=== PATIENT | male | born 1985 | race Two or more races ===

== ENCOUNTER 2018-11-06 11:45 | Inpatient (IN) | payer OTHER ==
[2018-11-06 14:01] VITALS: BMI 38.3
--- NOTE | 2018-11-06 14:32 | HP ---
CIWA Score Nausea/Vomitin (vomit x 1) Muscle Tremors: 3 Anxiety: 3 Agitation: 0-Normal Activity Paroxysmal Sweats: 2 Orientation: 1-Uncertain about Date Tacttile Disturbances: 2-Mild Itch/Numbness/Burn (finger tips) Auditory Disturbances: 1-Very Mild Visual Disturbances: 0-None Headache: 2-Mild CIWA-Ar Total Score: 17 - Admission Criteria OASAS Guidelines: Admission for Medically Managed Detox: Requires at least one of the followin. CIWA greater than 12 2. Seizures within the past 24 hours 3. Delirium tremens within the past 24 hours 4. Hallucinations within the past 24 hours 5. Acute intervention needed for co occurring medical disorder 6. Acute intervention needed for co occurring psychiatric disorder 7. Severe withdrawal that cannot be handled at a lower level of care (continued vomiting, continued diarrhea, abnormal vital signs) requiring intravenous medication and/or fluids 8. Patient presents the following: CIWA greater than 12, Acute intervention needed for co-occurring med or psych disorder Admission Criteria Met: Admission criteria met Admission ROS S - [facility] Chief Complaint: withdrawal symptoms Allergies/Adverse Reactions: Allergies Allergy/AdvReac Type Severity Reaction Status Date / Time No Known Allergies Allergy Verified 11/06/18 13:43 History of Present Illness: 33 yo male with hx of nicotine, heroin, cocaine and alcohol dependence is here seeking detox, this is patient first admission to this facility. Reports relapsed September 2018 after eighteen months of sobriety. Last detox September 2017 at [facility]. Reports recent visit [facility] emergency room d /t withdrawal symptoms one week ago. Utox + BZO, MET, ÓSCAR. PMHX: fatty liver, GERD, HTN, Depression, anxiety, schizophrenia, insomnia. Denies SI/ HI Reports hx of suicide attempts x6 with last episode August 2018. Reports hx of ETOH withdrawal seizures with last episode yesterday. Exam Limitations: No Limitations - Ebola screening Have you traveled outside of the country in the last 21 days: No (N) Have you had contact with anyone from an Ebola affected area: No Do you have a fever: No - Review of Systems Constitutional: Chills, Diaphoresis, Changes in sleep (no sleep x 4 days), Weakness, Other (weight gain x 50 lbs in past six months) EENT: reports: No Symptoms Reported Respiratory: reports: No Symptoms reported Cardiac: reports: Lightheadedness GI: reports: Nausea, Poor Fluid Intake, Vomiting : reports: No Symptoms Reported Musculoskeletal: reports: No Symptoms Reported Integumentary: reports: No Symptoms Reported Neuro: reports: Headache, Tingling (finger tips b/l) Hematology: reports: No Symptoms Reported Psychiatric: reports: Orientated x3, Anxious, Depressed Other Systems: Reviewed and Negative Patient History - Patient Medical History Hx Anemia: No Hx Asthma: No Hx Chronic Obstructive Pulmonary Disease (COPD): No Hx Cancer: No Hx Cardiac Disorders: No Hx Congestive Heart Failure: No Hx Hypertension: Yes Hx Hypercholesterolemia: No Hx Pacemaker: No HX Cerebrovascular Accident: No Hx Seizures: Yes (ETOH last episode yesterday ) Hx Dementia: No Hx Diabetes: No Hx Gastrointestinal Disorders: Yes (GERD , hx pancreatitis x 1 year ago ) Hx Liver Disease: Yes (Fatty liver ) Hx Genitourinary Disorders: No Hx Sexually Transmitted Disorders: No Hx Renal Disease (ESRD): No Hx Thyroid Disease: No Hx Human Immunodeficiency Virus (HIV): No Hx Hepatitis C: No Hx Depression: Yes Hx Suicide Attempt: Yes (suicide attempts x6 with last episode August 2018.) Hx Bipolar Disorder: No Hx Schizophrenia: Yes - Patient Surgical History Past Surgical History: Yes Other Surgical History: laser varicose vein tx - PPD History Previous Implant?: No Documented Results: Negative w/o proof PPD to be Administered?: Yes - Smoking Cessation Smoking history: Current every day smoker Have you smoked in the past 12 months: Yes Aproximately how many cigarettes per day: 3 Hx Chewing Tobacco Use: No Initiated information on smoking cessation: Yes 'Breaking Loose' booklet given: 11/06/18 - Substance & Tx. History Hx Alcohol Use: Yes Hx Substance Use: Yes Substance Use Type: Alcohol, Cocaine, Heroin Hx Substance Use Treatment: Yes (ast detox September 2017 at [facility]. ) - Substances abused Alcohol Substance route: Oral Frequency: Daily Amount used: 1 gallon vodka Age of first use: 10 Date of last use: 11/06/18 Cocaine Substance route: Inhalation Frequency: Daily Amount used: 3 grams Age of first use: 26 Date of last use: 11/04/18 Heroin Substance route: Inhalation Frequency: 3-6 times per week Amount used: 4 bags Age of first use: 22 Date of last use: 11/03/18 Family Disease History - Family Disease History Family History: Denies Admission Physical Exam [facility] - Vital Signs Vital Signs: Vital Signs - 24 hr 11/06/18 13:45 Temperature 98.4 F Pulse Rate 86 Respiratory 18 Rate Blood Pressure 151/83 - Physical General Appearance: Yes: Disheveled, Mild Distress, Alcohol on Breath, Obese, Tremorous, Sweating, Anxious HEENTM: Yes: EOMI, Hearing grossly Normal, Normal ENT Inspection, Normocephalic , Normal Voice, ROMY, Pharynx Normal, Tm's normal, Other (cheilitis) Respiratory: Yes: Chest Non-Tender, Lungs Clear, Normal Breath Sounds, No Respiratory Distress, No Accessory Muscle Use Neck: Yes: Within Normal Limits Breast: Yes: Breast Exam Deferred Cardiology: Yes: Regular Rhythm, Regular Rate Abdominal: Yes: Normal Bowel Sounds, Non Tender, Soft, Protuberent Genitourinary: Yes: Within Normal Limits Back: Yes: Normal Inspection Musculoskeletal: Yes: full range of Motion, Gait Steady, Pelvis Stable Extremities: Yes: Normal Capillary Refill, Normal Inspection, Normal Range of Motion, Non-Tender, Pedal Edema (+1 bilateral ankles), Other (+ varicose veins) 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: 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 NML intact, Fully Oriented, Alert, Motor Strength 5/5, Depressed Affect Integumentary: Yes: Normal Color, Warm, Diaphoresis, Other (+ multiple scars on both wrist) Lymphatic: Yes: Within Normal Limits - Diagnostic (1) Fatty liver Current Visit: Yes Status: Chronic (2) Alcohol dependence with uncomplicated withdrawal Current Visit: Yes Status: Acute (3) Psychiatric disorder Current Visit: Yes Status: Suspected (4) Essential (primary) hypertension Current Visit: Yes Status: Chronic (5) Cocaine dependence Current Visit: Yes Status: Acute Qualifiers: Substance use status: uncomplicated Qualified Code(s): F14.20 - Cocaine dependence, uncomplicated (6) Heroin use Current Visit: Yes Status: Acute (7) GERD (gastroesophageal reflux disease) Current Visit: Yes Status: Acute (8) Nicotine dependence Current Visit: Yes Status: Acute Qualifiers: Nicotine product type: cigarettes (9) Obese Current Visit: Yes Status: Acute Qualifiers: Body mass index: BMI 38.0-38.9 Cleared for Admission [facility] - Detox or Rehab [facility] Level of Care: Medically Managed ([facility] DETOX) Breathalyzer - Breathalyzer Breathalyzer: 0.232 Urine Drug Screen - Test Device Lot number: [id number] Expiration date: 06/09/20 - Control Is test valid?: Yes - Results Drug screen NEGATIVE: No Urine drug screen results: ÓSCAR-Cocaine, MET-Methamphetamine, BZO-Benzodiazepines Inpatient Rehab Admission - Rehab Decision to Admit Inpatient rehab admission?: No
[2018-11-06] MEDS ORDERED: NICOTINE POLACRILEX 2 MG GUM BUC PRN (14:47)
[2018-11-06] MEDS ORDERED: IBUPROFEN 400 MG TABLET (FP) PO PRN ×2 (14:47)
[2018-11-06] MEDS ORDERED: MELATONIN 5 MG TABLETS PO PRN (14:47)
[2018-11-06] MEDS ORDERED: MAGNESIUM HYDROX 2400MG/30ML ORAL SUSPENSION 30 ML CUP PO PRN (14:47)
[2018-11-06] MEDS ORDERED: MAGNESIUM CITRATE 300 ML BOTTLE PO PRN (14:47)
[2018-11-06] MEDS ORDERED: MAG HYDROX/AL HYDROX/SIMETH 30 ML UNIT-DOSE CUP PO PRN (14:47)
[2018-11-06] MEDS ORDERED: BISMUTH SUBSALICYLATE 524 MG/30 ML UD PO PRN (14:47)
[2018-11-06] MEDS ORDERED: MENTHOL/PHENOL 1 EACH UD MM PRN (14:47)
[2018-11-06] MEDS ORDERED: ONDANSETRON *ODT* 4 MG TABLET SL PRN (14:47)
[2018-11-06 16:18] LABS: HEMATOCRIT 42.5 % (35.4-49); MCH 29.5 pg (25.7-33.7); MEAN CELL VOLUME 89.4 fl (80-96); MEAN PLT VOLUME 9.5 fl (7.5-11.1); PLATELET COUNT 234 K/MM3 (134-434); RBC 4.75 M/mm3 (4.00-5.60); RDW 14.2 % (11.9-15.9); WHITE BLOOD COUNT 7.8 K/mm3 (4.0-10.0)
[2018-11-06 16:20] LABS: ALK PHOS 101 U/L (45-117); ANION GAP 6 MMOL/L (8-16); BILIRUBIN,TOTAL 0.3 mg/dL (0.2-1); BLOOD UREA NITROGEN 7 mg/dL (7-18); CALCIUM 9.3 mg/dL (8.5-10.1); CHLORIDE 108 mmol/L (98-107); CO2 29 mmol/L (21-32); CREATININE 0.8 mg/dL (0.55-1.3); GLUCOSE,RANDOM 113 mg/dL (74-106); POTASSIUM 3.5 mmol/L (3.5-5.1); SGOT/AST 47 U/L (15-37); SGPT/ALT 43 U/L (13-61); SODIUM 144 mmol/L (136-145); TOT PROT 7.7 g/dl (6.4-8.2)
[2018-11-06] MEDS ORDERED: cloNIDine HCL 0.1 MG TABLET PO ONE (17:00)
[2018-11-06] MEDS: LORazepam 2 MG TABLET PO SCH ×2 (17:44→22:13)
[2018-11-06] MEDS ORDERED: cloNIDine HCL 0.1 MG TABLET PO SCH (22:00)
[2018-11-06] MEDS: hydrOXYzine PAMOATE 25 MG CAPSULE (FP) PO PRN (22:13)
[2018-11-06] MEDS: RANITIDINE HCL 150 MG TABLET (FP) PO SCH (22:13)
[2018-11-06] MEDS: METHOCARBAMOL 500 MG TABLET PO PRN (22:13)
[2018-11-06] MEDS: THIAMINE HCL 100 MG TABLET (FP) PO SCH (22:13)
[2018-11-07 01:45] LABS: URINE APPEARANCE CLEAR; URINE BILIRUBIN NEGATIVE (NEGATIVE); URINE COLOR YELLOW; URINE GLUCOSE (UA) NEGATIVE (NEGATIVE); URINE KETONE NEGATIVE (NEGATIVE); URINE LEUK ESTERASE NEGATIVE (NEGATIVE); URINE NITRITE NEGATIVE (NEGATIVE); URINE PROTEIN NEGATIVE (NEGATIVE); URINE UROBILINOGEN 0.2 mg/dL (0.2-1.0)
[2018-11-07] MEDS: LORazepam 2 MG TABLET PO SCH ×2 (05:51→10:41)
[2018-11-07] MEDS: METHOCARBAMOL 500 MG TABLET PO PRN ×2 (06:12→16:50)
[2018-11-07] MEDS: PROCHLORPERAZINE MALEATE 5 MG TABLET PO PRN (09:16)
[2018-11-07] MEDS: hydrOXYzine PAMOATE 25 MG CAPSULE (FP) PO PRN ×2 (09:16→19:11)
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
[2018-11-07] MEDS: RANITIDINE HCL 150 MG TABLET (FP) PO SCH ×2 (10:40→22:08)
[2018-11-07] MEDS: PRENATAL VITAMINS W/ FOLIC ACID TABLET (FP) PO SCH (10:40)
[2018-11-07] MEDS: NICOTINE 14 MG/24 HOURS TOPICAL PATCH TD SCH (10:41)
[2018-11-07] MEDS: LITHIUM CARBONATE 300 MG CAPSULE (FP) PO SCH ×2 (11:49→22:08)
[2018-11-07] MEDS: busPIRone HCL 5 MG TABLET PO SCH (11:50)
[2018-11-07] MEDS: ESCITALOPRAM OXALATE 10 MG TABLET (FP) PO SCH (11:50)
[2018-11-07] MEDS: GABAPENTIN 400 MG CAPSULE (FP) PO SCH ×2 (14:07→22:07)
[2018-11-07] MEDS: LORazepam 1 MG TABLET PO PRN ×2 (14:12→19:11)
--- NOTE | 2018-11-07 14:50 | PN ---
S CIWA - CIWA Score Nausea/Vomitin Muscle Tremors: 3 Anxiety: 4-Mod. Anxious/Guarded Agitation: 4-Moderately Restless Paroxysmal Sweats: No Perspiration Orientation: 4Disoriented Place/Person Tacttile Disturbances: 2-Mild Itch/Numbness/Burn Auditory Disturbances: 0-None Visual Disturbances: 0-None Headache: 0-None Present CIWA-Ar Total Score: 20 BHS Progress Note (SOAP) Subjective: Stomach Cramping, Anxious, Body Aches, Tremors, Interrupted Sleep, Nausea, H/A. Objective: PATIENT A & O X 2 (UNCERTAIN ABOUT CURRENT LOCATION). PATIENT OBSERVED AMBULATING ON UNIT UNASSISTED. IN NO ACUTE DISTRESS. 11/07/18 14:48 Vital Signs Temperature 97.3 F L 11/07/18 13:23 Pulse Rate 71 11/07/18 13:30 Respiratory Rate 18 11/07/18 13:30 Blood Pressure 137/82 11/07/18 13:23 O2 Sat by Pulse Oximetry (%) Laboratory Tests 11/06/18 11/06/18 11/06/18 15:00 15:00 15:00 WBC 7.8 RBC 4.75 Hgb 14.0 Hct 42.5 MCV 89.4 MCH 29.5 MCHC 33.0 RDW 14.2 Plt Count 234 MPV 9.5 Sodium 144 Potassium 3.5 Chloride 108 H Carbon Dioxide 29 Anion Gap 6 L BUN 7 Creatinine 0.8 Creat Clearance w eGFR 112.75 Random Glucose 113 H Calcium 9.3 Total Bilirubin 0.3 AST 47 H ALT 43 Alkaline Phosphatase 101 Total Protein 7.7 Albumin 4.0 Urine Color Urine Appearance Urine pH Ur Specific [place] Urine Protein Urine Glucose (UA) Urine Ketones Urine Blood Urine Nitrite Urine Bilirubin Urine Urobilinogen Ur Leukocyte Esterase RPR Titer Nonreactive 11/06/18 15:54 WBC RBC Hgb Hct MCV MCH MCHC RDW Plt Count MPV Sodium Potassium Chloride Carbon Dioxide Anion Gap BUN Creatinine Creat Clearance w eGFR Random Glucose Calcium Total Bilirubin AST ALT Alkaline Phosphatase Total Protein Albumin Urine Color Yellow Urine Appearance Clear Urine pH 7.0 Ur Specific [place] 1.004 L Urine Protein Negative Urine Glucose (UA) Negative Urine Ketones Negative Urine Blood Negative Urine Nitrite Negative Urine Bilirubin Negative Urine Urobilinogen 0.2 Ur Leukocyte Esterase Negative RPR Titer LABS NOTED. Assessment: 11/07/18 14:48 WITHDRAWAL SYMPTOMS. Plan: CONTINUE DETOX. INCREASE DAILY PO FLUID INTAKE. PRN ROBAXIN PO FOR BODY ACHES / MUSCLE SPASMS / TREMORS.
[2018-11-07] MEDS: LORazepam 1 MG TABLET PO SCH ×2 (16:50→22:08)
[2018-11-07] MEDS: traZODone HCL 50 MG TABLET (FP) PO SCH (22:08)
[2018-11-07] MEDS: THIAMINE HCL 100 MG TABLET (FP) PO SCH (22:08)
[2018-11-07] MEDS: OLANZapine 7.5 MG TABLET PO SCH (22:08)
[2018-11-08] MEDS: GABAPENTIN 400 MG CAPSULE (FP) PO SCH ×3 (05:34→22:29)
[2018-11-08] MEDS: LORazepam 1 MG TABLET PO SCH ×2 (05:35→10:03)
[2018-11-08] MEDS: RANITIDINE HCL 150 MG TABLET (FP) PO SCH ×2 (10:02→22:30)
[2018-11-08] MEDS: PRENATAL VITAMINS W/ FOLIC ACID TABLET (FP) PO SCH (10:02)
[2018-11-08] MEDS: LITHIUM CARBONATE 300 MG CAPSULE (FP) PO SCH ×2 (10:03→22:29)
[2018-11-08] MEDS: busPIRone HCL 5 MG TABLET PO SCH (10:04)
[2018-11-08] MEDS: PROCHLORPERAZINE MALEATE 5 MG TABLET PO PRN (10:04)
[2018-11-08] MEDS: METHOCARBAMOL 500 MG TABLET PO PRN ×2 (10:04→17:48)
[2018-11-08] MEDS: ESCITALOPRAM OXALATE 10 MG TABLET (FP) PO SCH (10:04)
[2018-11-08] MEDS: NICOTINE 14 MG/24 HOURS TOPICAL PATCH TD SCH (10:06)
[2018-11-08] MEDS: LORazepam 1 MG TABLET PO PRN (12:24)
--- NOTE | 2018-11-08 13:49 | PN ---
S CIWA - CIWA Score Nausea/Vomitin Muscle Tremors: None Anxiety: 3 Agitation: 2 Paroxysmal Sweats: 2 Orientation: 0-Oriented Tacttile Disturbances: 2-Mild Itch/Numbness/Burn Auditory Disturbances: 0-None Visual Disturbances: 2-Mild Sensitivity Headache: 0-None Present CIWA-Ar Total Score: 14 BHS Progress Note (SOAP) Subjective: Nausea, Anxious, Sweating. Patient Reports That Withdrawal / Detox Symptoms in general are subsiding in severity. Objective: PATIENT A & O X 3, OBSERVED AMBULATING ON UNIT UNASSISTED. IN NO ACUTE DISTRESS. 11/08/18 13:50 Laboratory Tests 11/06/18 11/06/18 11/06/18 15:00 15:00 15:00 WBC 7.8 RBC 4.75 Hgb 14.0 Hct 42.5 MCV 89.4 MCH 29.5 MCHC 33.0 RDW 14.2 Plt Count 234 MPV 9.5 Sodium 144 Potassium 3.5 Chloride 108 H Carbon Dioxide 29 Anion Gap 6 L BUN 7 Creatinine 0.8 Creat Clearance w eGFR 112.75 Random Glucose 113 H Calcium 9.3 Total Bilirubin 0.3 AST 47 H ALT 43 Alkaline Phosphatase 101 Total Protein 7.7 Albumin 4.0 Urine Color Urine Appearance Urine pH Ur Specific [place] Urine Protein Urine Glucose (UA) Urine Ketones Urine Blood Urine Nitrite Urine Bilirubin Urine Urobilinogen Ur Leukocyte Esterase RPR Titer Nonreactive 11/06/18 15:54 WBC RBC Hgb Hct MCV MCH MCHC RDW Plt Count MPV Sodium Potassium Chloride Carbon Dioxide Anion Gap BUN Creatinine Creat Clearance w eGFR Random Glucose Calcium Total Bilirubin AST ALT Alkaline Phosphatase Total Protein Albumin Urine Color Yellow Urine Appearance Clear Urine pH 7.0 Ur Specific [place] 1.004 L Urine Protein Negative Urine Glucose (UA) Negative Urine Ketones Negative Urine Blood Negative Urine Nitrite Negative Urine Bilirubin Negative Urine Urobilinogen 0.2 Ur Leukocyte Esterase Negative RPR Titer LABS NOTED. Assessment: 11/08/18 13:50 WITHDRAWAL SYMPTOMS. Plan: CONTINUE DETOX. INCREASE DAILY PO FLUID INTAKE. PRN COMPAZINE PO FOR NAUSEA.
[2018-11-08] MEDS: hydrOXYzine PAMOATE 25 MG CAPSULE (FP) PO PRN (15:32)
[2018-11-08] MEDS ORDERED: LORazepam 0.5 MG TABLET PO PRN (17:00)
[2018-11-08] MEDS: LORazepam 0.5 MG TABLET PO SCH ×2 (17:07→22:29)
[2018-11-08] MEDS: OLANZapine 7.5 MG TABLET PO SCH (22:29)
[2018-11-08] MEDS: THIAMINE HCL 100 MG TABLET (FP) PO SCH (22:29)
[2018-11-08] MEDS: traZODone HCL 50 MG TABLET (FP) PO SCH (22:31)
[2018-11-09] MEDS: LORazepam 0.5 MG TABLET PO SCH (05:50)
[2018-11-09] MEDS: GABAPENTIN 400 MG CAPSULE (FP) PO SCH (05:50)
[2018-11-09 06:22] VITALS: BP 131/79; PULSE 65; TEMP 97.3
[2018-11-09] MEDS: METHOCARBAMOL 500 MG TABLET PO PRN (07:35)
--- NOTE | 2018-11-09 16:13 | DS ---
[facility] Detox Discharge Summary Admission Date: 11/06/18 Discharge Date: 11/09/18 - History Present History: Alcohol Dependence, Cocaine Dependence, Opioid Dependence Additional Comments: PATIENT LEFT DETOX UNIT EARLY IN AM PRIOR TO TIME OF ARRIVAL OF DIETETIC INTERN ON DETOX UNIT. THUS PRE-DISCHARGE MEDICAL ASSESSMENT UNABLE TO E DONE. PER PATIENT'S REPORT YESTERDAY, HE DECLINED OFFER OF MEDICATION PRESCRIPTION FOR HOME MEDICATION FOR DISCHARGE, NOTING THAT HE CURRENTLY HAS ADEQUATE SUPPLIES OF ALL PRESCRIBED HOME MEDICATIONS AT HOME. YESTERDAY ON DETOX UNIT, PATIENT ADVISED BY DIETETIC INTERN TO FOLLOW-UP WITH [facility] WHEN POSSIBLE FOR GENERAL MEDICAL ASSESSMENT AND FOR HISTORY OF HYPERTENSION. PATIENT VERBALIZED UNDERSTANDING OF RECOMMENDATION. PER NETWORK SUPPORT TECHNICIAN Justus DRIVER, PATIENT WILL RETURN TO ' [facility]PATIENT [facility]GRAM ([place], [place]) WHERE HE WAS PREVIOUSLY A CLIENT, FOR AFTERCARE. Pertinent Past History: HTN, G.E.R.D., Nicotine Dependence, Fatty Liver, Depression, Anxiety, Insomnia, Schizophrenia, History Of Seizures (Due To Withdrawal), History Of Pancreatitis. - Physical Exam Results Vital Signs: Vital Signs Temperature 97.3 F L 11/09/18 06:21 Pulse Rate 65 11/09/18 06:21 Respiratory Rate 20 11/09/18 06:21 Blood Pressure 131/79 11/09/18 06:21 O2 Sat by Pulse Oximetry (%) Pertinent Admission Physical Exam Findings: WITHDRAWAL SYMPTOMS. Laboratory Tests 11/06/18 11/06/18 11/06/18 15:00 15:00 15:00 WBC 7.8 RBC 4.75 Hgb 14.0 Hct 42.5 MCV 89.4 MCH 29.5 MCHC 33.0 RDW 14.2 Plt Count 234 MPV 9.5 Sodium 144 Potassium 3.5 Chloride 108 H Carbon Dioxide 29 Anion Gap 6 L BUN 7 Creatinine 0.8 Creat Clearance w eGFR 112.75 Random Glucose 113 H Calcium 9.3 Total Bilirubin 0.3 AST 47 H ALT 43 Alkaline Phosphatase 101 Total Protein 7.7 Albumin 4.0 Urine Color Urine Appearance Urine pH Ur Specific [place] Urine Protein Urine Glucose (UA) Urine Ketones Urine Blood Urine Nitrite Urine Bilirubin Urine Urobilinogen Ur Leukocyte Esterase [place] RPR Titer Nonreactive 11/06/18 11/08/18 15:54 07:00 WBC RBC Hgb Hct MCV MCH MCHC RDW Plt Count MPV Sodium Potassium Chloride Carbon Dioxide Anion Gap BUN Creatinine Creat Clearance w eGFR Random Glucose Calcium Total Bilirubin AST ALT Alkaline Phosphatase Total Protein Albumin Urine Color Yellow Urine Appearance Clear Urine pH 7.0 Ur Specific [place] 1.004 L Urine Protein Negative Urine Glucose (UA) Negative Urine Ketones Negative Urine Blood Negative Urine Nitrite Negative Urine Bilirubin Negative Urine Urobilinogen 0.2 Ur Leukocyte Esterase Negative [place] 0.5 L RPR Titer LABS NOTED. - Treatment Hospital Course: Detox Protocol Followed, Detoxed Safely, Responded well, Discharged Condition Good Patient has Accepted a Rehab Referral to: PT. RETURNING TO '[facility] ([place], [place]). - Medication Discharge Medications: Ambulatory Orders Buspirone HCl [Buspar -] 5 mg PO DAILY 11/06/18 Clonazepam 1 mg PO BID 11/06/18 Escitalopram Oxalate [Lexapro -] 5 mg PO DAILY 11/06/18 Gabapentin 400 mg PO TID 11/06/18 [place] Carbonate [Eskalith -] 300 mg PO BID 11/06/18 Naltrexone HCl 50 mg PO DAILY 11/06/18 Olanzapine 15 mg PO HS 11/06/18 Ranitidine [Zantac -] 150 mg PO BID 11/06/18 Trazodone HCl 150 mg PO DAILY 11/06/18 Diltiazem HCl [Diltiazem 24Hr ER] 360 mg PO DAILY 11/07/18 - Diagnosis (1) Alcohol dependence with uncomplicated withdrawal Status: Acute (2) Cocaine dependence Status: Acute Qualifiers: Substance use status: uncomplicated Qualified Code(s): F14.20 - Cocaine dependence, uncomplicated (3) Heroin use Status: Acute (4) Essential (primary) hypertension Status: Chronic (5) Fatty liver Status: Chronic (6) GERD (gastroesophageal reflux disease) Status: Chronic Qualifiers: Esophagitis presence: esophagitis presence not specified Qualified Code(s) : K21.9 - Gastro-esophageal reflux disease without esophagitis (7) Nicotine dependence Status: Chronic Qualifiers: Nicotine product type: cigarettes Substance use status: uncomplicated Qualified Code(s): F17.210 - Nicotine dependence, cigarettes, uncomplicated (8) Obese Status: Chronic Qualifiers: Obesity type: unspecified obesity type Obesity classification: adult class 2 (BMI 35 - 39.9) Serious obesity comorbidity presence: unspecified whether serious comorbidity present Body mass index: BMI 38.0-38.9 Qualified Code(s) : E66.9 - Obesity, unspecified; Z68.38 - Body mass index (BMI) 38.0-38.9, adult (9) Substance-induced anxiety disorder Status: Acute (10) Substance-induced sleep disorder Status: Acute (11) Schizoaffective disorder Status: Chronic Qualifiers: Schizoaffective disorder type: unspecified Qualified Code(s): F25.9 - Schizoaffective disorder, unspecified - AMA Did Patient Leave Against Medical Advice: No
== END 2018-11-09 08:23 | disposition home or self-care (01) | DRG 773 ==
LOC: YASAS 11:45 → Y6N 15:39
PROVIDERS: ADMIT Surgery; ATTEND Surgery
PROC: HZ2ZZZZ Detoxification Services for Substance Abuse Treatment (ICD-10-PCS; principal; 2018-11-06)
DX: F10.230 Alcohol dependence with withdrawal, uncomplicated (principal); F11.20 Opioid dependence, uncomplicated; F14.20 Cocaine dependence, uncomplicated; F17.210 Nicotine dependence, cigarettes, uncomplicated; F19.280 Other psychoactive substance dependence with psychoactive substance-induced anxiety disorder; F19.282 Other psychoactive substance dependence with psychoactive substance-induced sleep disorder; F25.9 Schizoaffective disorder, unspecified; G40.509 Epileptic seizures related to external causes, not intractable, without status epilepticus; I10 Essential (primary) hypertension; K21.9 Gastro-esophageal reflux disease without esophagitis; K76.0 Fatty (change of) liver, not elsewhere classified; E66.9 Obesity, unspecified; Z68.38 Body mass index [BMI] 38.0-38.9, adult; Z91.5 Personal history of self-harm
CPT/HCPCS: 36415; 80053; 80178; 81003; 85027; 86593; J0735

== ENCOUNTER 2018-11-22 12:17 | Inpatient (IN) | payer OTHER ==
[2018-11-22 17:31] VITALS: BMI 40.4
--- NOTE | 2018-11-22 17:52 | HP ---
CIWA Score Nausea/Vomitin-No Nausea/No Vomiting Muscle Tremors: 7-Severe,w/o Arm Extended Anxiety: 6 Agitation: 6 Paroxysmal Sweats: 4-Forehead w/Sweat Beads Orientation: 3-Disoriented Date>2 days Tacttile Disturbances: 3-Moderate Itch/Numb/Burn Auditory Disturbances: 2-Mild Harshness/Frighten Visual Disturbances: 2-Mild Sensitivity Headache: 3-Moderate CIWA-Ar Total Score: 36 - Admission Criteria OASAS Guidelines: Admission for Medically Managed Detox: Requires at least one of the followin. CIWA greater than 12 2. Seizures within the past 24 hours 3. Delirium tremens within the past 24 hours 4. Hallucinations within the past 24 hours 5. Acute intervention needed for co occurring medical disorder 6. Acute intervention needed for co occurring psychiatric disorder 7. Severe withdrawal that cannot be handled at a lower level of care (continued vomiting, continued diarrhea, abnormal vital signs) requiring intravenous medication and/or fluids 8. Patient presents the following: CIWA greater than 12, Acute intervention needed for co-occurring med or psych disorder Admission Criteria Met: Admission criteria met Admission ROS [facility] Chief Complaint: C/O SEVERE WITHDRAWAL SX'S. SEEKING DETOX Allergies/Adverse Reactions: Allergies Allergy/AdvReac Type Severity Reaction Status Date / Time No Known Allergies Allergy Verified 11/22/18 17:02 History of Present Illness: 33 Y.O. MALE WITH ALCOHOLISM AND COCAINE DEPENDENCE HERE FOR DETOX. CLIENT IS KNOWN TO THIS PROGRAM. LAST HERE 2 WEEKS AGO. CLIENT REPORTS IMMEDIATELY RELAPSING. REPORTS CONSUMING MORE ALCOHOL NOW THAN LAST ADMISSION. PRESENTS WITH SEVERE WITHDRAWAL SX'S. COWS 36. HX/O WITHDRAWAL SZ. LAST EPISODE 1 DAY AGO. REPORTS LONGEST CLEAN TIME 18 MONTHS 1 YEAR AGO. RELAPSED 5 MONTHS AGO. DENIES SI/HI + AVH WITH WITHDRAWALS BUT NOT AT PRESENT TIME. DOMICILED, UNEMPLOYED, DENIES LEGALS Exam Limitations: No Limitations - Ebola screening Have you traveled outside of the country in the last 21 days: No (N) Have you had contact with anyone from an Ebola affected area: No Do you have a fever: No - Review of Systems Constitutional: Chills, Loss of Appetite, Night Sweats, Changes in sleep EENT: reports: Eye Pain (LEFT ASSOCAITED WITH HEADACHE) Respiratory: reports: Shortness of Breath Cardiac: reports: No Symptoms Reported GI: reports: Poor Fluid Intake, Abdominal cramping : reports: No Symptoms Reported Musculoskeletal: reports: Back Pain (CHRONIC) Integumentary: reports: Flushing, Sweating Neuro: reports: Headache, Numbness (BLE), Seizure, Tremors, Weakness (BLE) Endocrine: reports: Other ("THYROID PROBLEMS") Hematology: reports: Easy Bruising Psychiatric: reports: Orientated x3, Agitated, Anxious, Depressed Other Systems: Reviewed and Negative Patient History - Patient Medical History Hx Anemia: No Hx Asthma: Yes Hx Chronic Obstructive Pulmonary Disease (COPD): No Hx Cancer: No Hx Cardiac Disorders: Yes (PALPITATIONS) Hx Congestive Heart Failure: No Hx Hypertension: No Hx Hypercholesterolemia: No Hx Pacemaker: No HX Cerebrovascular Accident: No Hx Seizures: No Hx Dementia: No Hx Diabetes: No Hx Gastrointestinal Disorders: No Hx Liver Disease: Yes (Fatty liver ) Hx Genitourinary Disorders: No Hx Sexually Transmitted Disorders: No Hx Renal Disease (ESRD): No Hx Thyroid Disease: No Hx Human Immunodeficiency Virus (HIV): No Hx Hepatitis C: No Hx Depression: Yes Hx Suicide Attempt: Yes (suicide attempts x6 with last episode August 2018.) Hx Bipolar Disorder: No Hx Schizophrenia: Yes Other Medical History: HX/O SELF INFLICTING INJURIES - Patient Surgical History Past Surgical History: Yes Other Surgical History: laser varicose vein tx 2019 Anesthesia Reaction: No - PPD History Previous Implant?: Yes Documented Results: Negative w/proof Implanted On Prior [facility] Admission?: Yes Date: 11/08/18 Results: 0MM PPD to be Administered?: No - Smoking Cessation Smoking history: Current every day smoker Have you smoked in the past 12 months: Yes Aproximately how many cigarettes per day: 30 Hx Chewing Tobacco Use: No Initiated information on smoking cessation: Yes 'Breaking Loose' booklet given: 11/22/18 - Substance & Tx. History Hx Alcohol Use: Yes Hx Substance Use: Yes Substance Use Type: Alcohol, Cocaine Hx Substance Use Treatment: Yes ([facility]) - Substances abused Alcohol Substance route: Oral Frequency: Daily Amount used: 1 gallon vodka Age of first use: 10 Date of last use: 11/22/18 (1/2 GALLON) Cocaine Substance route: Inhalation Frequency: Daily Amount used: 3 grams Age of first use: 26 Date of last use: 11/20/18 Heroin Substance route: Inhalation Frequency: 1-2 times per week Amount used: 2 BAGS Age of first use: 22 Date of last use: 11/03/18 Other Other (specify): EXTASCY Substance route: Oral Frequency: 1-2 times per week Amount used: 2 PILLS WHEN USED Age of first use: 21 Date of last use: 11/20/18 Family Disease History - Family Disease History Family Disease History: Heart Disease: Mother (HTN), Other: Father (ALCOHOLISM) Admission Physical Exam [facility] - Vital Signs Vital Signs: Vital Signs - 24 hr 11/22/18 16:58 Temperature 98.1 F Pulse Rate 116 H Respiratory 20 Rate Blood Pressure 137/84 - Physical General Appearance: Yes: Severe Distress, Obese, Tremorous, Sweating, Anxious, Other (MORBIDLY OBESE) HEENTM: Yes: EOMI, Normocephalic, Normal Voice, ROMY, Pharynx Normal, Nasal Congestion, Other (MISSING TEETH DRY MUCOUS MEMEBRANES) Respiratory: Yes: Chest Non-Tender, Lungs Clear, Normal Breath Sounds, No Accessory Muscle Use, Other (SOB) Neck: Yes: No masses,lesions,Nodules, Supple, Trachea in good position Breast: Yes: Breast Exam Deferred Cardiology: Yes: Regular Rhythm, S1, S2, Tachycardia Abdominal: Yes: Non Tender, Soft, Increased Bowel Sounds, Protuberent, Other ( OBESE) Genitourinary: Yes: Within Normal Limits (BNO C/O) Back: Yes: Normal Inspection Musculoskeletal: Yes: full range of Motion, Gait Steady Extremities: Yes: Normal Capillary Refill, Normal Range of Motion, Non-Tender, Tremors 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: Yes: Alert, Motor Strength 5/5, Depressed Affect Integumentary: Yes: Dry (DRY FLAKY SKIN TO BLE), Moist (FACE WITH FLUSHING REDNESS OF FACE), Other (FLUSHED CLIENT ALSO HAS OLD SCARS FROM SELF INFLICTED INJURIES SLASHING OF WRIST) Lymphatic: Yes: Within Normal Limits - Diagnostic (1) Asthma Current Visit: Yes Status: Acute (2) Depressed affect Current Visit: Yes Status: Acute (3) Alcohol dependence with uncomplicated withdrawal Current Visit: No Status: Acute (4) Cocaine dependence Current Visit: No Status: Acute Qualifiers: Substance use status: uncomplicated Qualified Code(s): F14.20 - Cocaine dependence, uncomplicated (5) Substance-induced anxiety disorder Current Visit: No Status: Acute (6) Substance-induced sleep disorder Current Visit: No Status: Acute (7) Essential (primary) hypertension Current Visit: No Status: Chronic (8) Fatty liver Current Visit: No Status: Chronic (9) GERD (gastroesophageal reflux disease) Current Visit: No Status: Chronic Qualifiers: Esophagitis presence: esophagitis presence not specified Qualified Code(s) : K21.9 - Gastro-esophageal reflux disease without esophagitis (10) Nicotine dependence Current Visit: No Status: Chronic Qualifiers: Nicotine product type: cigarettes Substance use status: uncomplicated Qualified Code(s): F17.210 - Nicotine dependence, cigarettes, uncomplicated (11) Obese Current Visit: No Status: Chronic Qualifiers: Obesity type: unspecified obesity type Obesity classification: adult class 2 (BMI 35 - 39.9) Serious obesity comorbidity presence: unspecified whether serious comorbidity present Body mass index: BMI 38.0-38.9 Qualified Code(s) : E66.9 - Obesity, unspecified; Z68.38 - Body mass index (BMI) 38.0-38.9, adult (12) Schizoaffective disorder Current Visit: No Status: Chronic Qualifiers: Schizoaffective disorder type: unspecified Qualified Code(s): F25.9 - Schizoaffective disorder, unspecified (13) Alcohol withdrawal seizure Current Visit: Yes Status: Acute Comment: LAST EPISODE 1 DAY AGO (14) Self-inflicted laceration of wrist Current Visit: Yes Status: Chronic Comment: HISTORY (15) Dry mucous membranes Current Visit: Yes Status: Acute Cleared for Admission S - Detox or Rehab [facility] Level of Care: Medically Managed Detox Regimen/Protocol: Librium Claeared for Rehab Admission: No Breathalyzer - Breathalyzer Breathalyzer: 0.232 Urine Drug Screen - Test Device Lot number: [id number] Expiration date: 06/09/20 - Control Is test valid?: Yes - Results Drug screen NEGATIVE: No Urine drug screen results: ÓSCAR-Cocaine, MET-Methamphetamine, BZO-Benzodiazepines Inpatient Rehab Admission - Rehab Decision to Admit Inpatient rehab admission?: No
[2018-11-22] MEDS ORDERED: IBUPROFEN 400 MG TABLET (FP) PO PRN ×2 (17:58)
[2018-11-22] MEDS ORDERED: hydrOXYzine PAMOATE 25 MG CAPSULE (FP) PO PRN (17:58)
[2018-11-22] MEDS ORDERED: guaiFENesin 200 MG/10 ML 10 ML UNIT-DOSE CUPS PO PRN (17:58)
[2018-11-22] MEDS ORDERED: P-EPHED 60MG/TRIPROLIDI 2.5MG TABLET PO PRN (17:58)
[2018-11-22] MEDS ORDERED: ONDANSETRON *ODT* 4 MG TABLET SL PRN (17:58)
[2018-11-22] MEDS ORDERED: MAG HYDROX/AL HYDROX/SIMETH 30 ML UNIT-DOSE CUP PO PRN (17:58)
[2018-11-22] MEDS ORDERED: ACETAMINOPHEN 325 MG TABLET (FP) PO PRN ×2 (17:58)
[2018-11-22] MEDS ORDERED: MAGNESIUM HYDROX 2400MG/30ML ORAL SUSPENSION 30 ML CUP PO PRN (17:58)
[2018-11-22] MEDS ORDERED: DICYCLOMINE HCL 10 MG CAPSULE PO PRN (17:58)
[2018-11-22] MEDS ORDERED: BISMUTH SUBSALICYLATE 524 MG/30 ML UD PO PRN (17:58)
[2018-11-22] MEDS ORDERED: MENTHOL/PHENOL 1 EACH UD MM PRN (17:58)
[2018-11-22] MEDS ORDERED: MAGNESIUM CITRATE 300 ML BOTTLE PO PRN (17:58)
[2018-11-22] MEDS ORDERED: ALBUTEROL SO4 8 GM HFA INHALER IH PRN (18:01)
[2018-11-22] MEDS: chlordiazePOXIDE HCL 25 MG CAPSULE PO SCH ×2 (18:48→22:42)
[2018-11-22] MEDS: MELATONIN 5 MG TABLETS PO PRN (22:42)
[2018-11-22] MEDS: THIAMINE HCL 100 MG TABLET (FP) PO SCH (22:42)
[2018-11-22] MEDS: RANITIDINE HCL 150 MG TABLET (FP) PO SCH (22:42)
[2018-11-23] MEDS: chlordiazePOXIDE HCL 25 MG CAPSULE PO SCH ×4 (05:25→22:12)
[2018-11-23] MEDS: chlordiazePOXIDE HCL 25 MG CAPSULE PO PRN ×3 (08:49→20:05)
--- NOTE | 2018-11-23 09:25 | CONSULT ---
[facility] Psychiatric Consult - Data Date of interview: 11/23/18 Admission source: [facility] Identifying data: Patient is a 33 year old single male, without children, domiciled (lives with mother), and is currently unemployed. This is one of multiple admissions for patient. Patient admitted to for alcohol and cocaine dependence. Substance Abuse History: Smoking Cessation. Smoking history: Current every day smoker. Have you smoked in the past 12 months: Yes. Aproximately how many cigarettes per day: 30. Hx Chewing Tobacco Use: No. Initiated information on smoking cessation: Yes. 'Breaking Loose' booklet given: 11/22/18. - Substance & Tx. History. Hx Alcohol Use: Yes. Hx Substance Use: Yes. Substance Use Type : Alcohol, Cocaine. Hx Substance Use Treatment: Yes ([facility]). - Substances abused. Alcohol. Substance route: Oral. Frequency: Daily. Amount used: 1 gallon vodka. Age of first use: 10. Date of last use: 11/22/18 (1/2 GALLON). * * Cocaine. Substance route: Inhalation. Frequency: Daily. Amount used: 3 grams. Age of first use: 26. Date of last use: 11/20/18. Heroin. Substance route: Inhalation. Frequency: 1-2 times per week. Amount used: 2 BAGS. Age of first use: 22. Date of last use: 11/03/18. Other. Other ( specify): EXTASCY. Substance route: Oral. Frequency: 1-2 times per week. Amount used: 2 PILLS WHEN USED. Age of first use: 21. 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 He was taken to see a psychiatrist and was diagnosed with anxiety. Approximately seven years later he was hospitalized at [facility] and was diagnosed with schizophrenia. Patient is also known to [facility] and various facilites in [place]. He reports history of auditory and visual hallucinatoins. Mr. Herrera also reports a history of self mutilation by cutting. He is provided with outpatient psychiatric care in [place], [place] by Dr. Hawthorne. States he is prescribed Zyprexa 15mg HS + Gabapentin 200mg TID + Buspar 10mg TID + Lexapro 15mg + [place] 300mg BID + trazodone 300mg HS. At present, patient reports stable mood. No psychosis noted. Physical/Sexual Abuse/Trauma History: denies. Mental Status Exam - Mental Status Exam Alert and Oriented to: Time, Place, Person Cognitive Function: Good Patient Appearance: Well Groomed Mood: Euthymic Affect: Mood Congruent Patient Behavior: Cooperative Speech Pattern: Appropriate Voice Loudness: Normal Thought Process: Goal Oriented Thought Disorder: Not Present Hallucinations: Denies Suicidal Ideation: Denies Homicidal Ideation: Denies Insight/Judgement: Poor Sleep: Poorly Appetite: Fair Muscle strength/Tone: Normal Gait/Station: Normal Psychiatric Findings - Problem List ([place] 1, 2,3) (1) Alcohol dependence with uncomplicated withdrawal Current Visit: Yes Status: Acute (2) Cocaine dependence Current Visit: Yes Status: Acute Qualifiers: Substance use status: uncomplicated Qualified Code(s): F14.20 - Cocaine dependence, uncomplicated (3) Uncomplicated opioid dependence Current Visit: Yes Status: Acute (4) Schizoaffective disorder Current Visit: Yes Status: Chronic Qualifiers: Schizoaffective disorder type: unspecified Qualified Code(s): F25.9 - Schizoaffective disorder, unspecified - Initial Treatment Plan Initial Treatment Plan: Psychoeducation provided. Detoxifcation in progress. Will order Lexapro 15mg +Zyprexa 15mg HS + Gabapentin 200mg TID + [place] 300mg BID + Trazodone 150mg (reduce dosage). [place] level ordered for 11/24/18. Patient recently admitted to detox on 11/06/18 and BUN was 7 and Creat 0.8. Benefits and side effects discussed. Verbal consent given.
--- NOTE | 2018-11-23 10:08 | PN ---
[facility] CIWA - CIWA Score Nausea/Vomitin-Mild Nausea/No Vomiting Muscle Tremors: 3 Anxiety: 4-Mod. Anxious/Guarded Agitation: 4-Moderately Restless Paroxysmal Sweats: 1-Minimal Palms Moist Orientation: 2-Disoriented Date<2 days Tacttile Disturbances: 0-None Auditory Disturbances: 0-None Visual Disturbances: 0-None Headache: 0-None Present CIWA-Ar Total Score: 15 BHS Progress Note (SOAP) Subjective: seen by psychiatrist doing better with psychotropic medication ambulating on hallway social with peers discuss risks of alcohol misuse Objective: 11/23/18 10:07 Vital Signs Temperature 97.0 F L 11/23/18 09:45 Pulse Rate 86 11/23/18 09:45 Respiratory Rate 18 11/23/18 09:45 Blood Pressure 143/88 11/23/18 09:45 O2 Sat by Pulse Oximetry (%) lab see 10/2018 lab result Assessment: 11/23/18 10:14 alcohol withdrawal sx Plan: continue detox
[2018-11-23] MEDS: PRENATAL VITAMINS W/ FOLIC ACID TABLET (FP) PO SCH (10:26)
[2018-11-23] MEDS: ESCITALOPRAM OXALATE 10 MG TABLET (FP) PO SCH (10:26)
[2018-11-23] MEDS: RANITIDINE HCL 150 MG TABLET (FP) PO SCH ×2 (10:26→22:12)
[2018-11-23] MEDS: NICOTINE 21 MG/24 HOURS TOPICAL PATCH TD SCH (10:27)
[2018-11-23] MEDS: diphenhydrAMINE HCL 25 MG CAPSULE (FP) PO PRN ×3 (12:12→22:35)
[2018-11-23 12:38] LABS: PH,URINE 6.5 (5.0-8.0); URINE APPEARANCE CLEAR; URINE BILIRUBIN NEGATIVE (NEGATIVE); URINE COLOR YELLOW; URINE GLUCOSE (UA) NEGATIVE (NEGATIVE); URINE KETONE NEGATIVE (NEGATIVE); URINE LEUK ESTERASE NEGATIVE (NEGATIVE); URINE NITRITE NEGATIVE (NEGATIVE); URINE PROTEIN NEGATIVE (NEGATIVE); URINE UROBILINOGEN 0.2 mg/dL (0.2-1.0)
[2018-11-23] MEDS: busPIRone HCL 10 MG TABLET (FP) PO SCH ×2 (15:16→22:11)
[2018-11-23] MEDS: GABAPENTIN 100 MG CAPSULE (FP) PO SCH ×2 (15:16→22:11)
[2018-11-23] MEDS: BUDESONIDE/FORMETEROL FUMARATE 160/4.5 mcg INHALER IH SCH (22:11)
[2018-11-23] MEDS: THIAMINE HCL 100 MG TABLET (FP) PO SCH (22:11)
[2018-11-23] MEDS: traZODone HCL 50 MG TABLET (FP) PO SCH (22:12)
[2018-11-23] MEDS: LITHIUM CARBONATE 300 MG CAPSULE (FP) PO SCH (22:12)
[2018-11-23] MEDS: MELATONIN 5 MG TABLETS PO PRN (22:33)
[2018-11-23] MEDS: BACLOFEN 10 MG TABLET (FP) PO PRN (22:34)
[2018-11-23] MEDS: OLANZapine 7.5 MG TABLET PO SCH (22:57)
[2018-11-24] MEDS: chlordiazePOXIDE HCL 25 MG CAPSULE PO SCH ×2 (05:37→10:28)
[2018-11-24] MEDS: busPIRone HCL 10 MG TABLET (FP) PO SCH ×3 (05:37→22:19)
[2018-11-24] MEDS: GABAPENTIN 100 MG CAPSULE (FP) PO SCH ×3 (05:37→22:20)
[2018-11-24] MEDS: diphenhydrAMINE HCL 25 MG CAPSULE (FP) PO PRN ×3 (07:33→22:18)
[2018-11-24] MEDS: METHOCARBAMOL 500 MG TABLET PO PRN ×2 (07:33→12:15)
[2018-11-24] MEDS: NICOTINE POLACRILEX 4 MG GUM BUC PRN ×4 (09:18→22:25)
[2018-11-24] MEDS: LITHIUM CARBONATE 300 MG CAPSULE (FP) PO SCH ×2 (10:27→22:20)
[2018-11-24] MEDS: PRENATAL VITAMINS W/ FOLIC ACID TABLET (FP) PO SCH (10:27)
[2018-11-24] MEDS: RANITIDINE HCL 150 MG TABLET (FP) PO SCH ×2 (10:28→22:19)
[2018-11-24] MEDS: NICOTINE 21 MG/24 HOURS TOPICAL PATCH TD SCH (10:28)
[2018-11-24] MEDS: ESCITALOPRAM OXALATE 10 MG TABLET (FP) PO SCH (10:28)
[2018-11-24] MEDS: BUDESONIDE/FORMETEROL FUMARATE 160/4.5 mcg INHALER IH SCH ×2 (10:36→22:18)
[2018-11-24] MEDS: chlordiazePOXIDE HCL 25 MG CAPSULE PO PRN (13:17)
[2018-11-24] MEDS ORDERED: chlordiazePOXIDE HCL 10 MG CAPSULE PO PRN (17:00)
[2018-11-24] MEDS: chlordiazePOXIDE HCL 10 MG CAPSULE PO SCH ×2 (17:29→22:19)
--- NOTE | 2018-11-24 18:13 | PN ---
S CIWA - CIWA Score Nausea/Vomitin-No Nausea/No Vomiting Muscle Tremors: 3 Anxiety: 3 Agitation: 2 Paroxysmal Sweats: 3 Orientation: 2-Disoriented Date<2 days Tacttile Disturbances: 0-None Auditory Disturbances: 0-None Visual Disturbances: 2-Mild Sensitivity Headache: 0-None Present CIWA-Ar Total Score: 15 S Progress Note (SOAP) Subjective: Tremors, Anxious, Chills, Interrupted Sleep, Body Aches. Objective: PATIENT A & O X 2 (UNCERTAIN ABOUT CURRENT DAY / DATE). PATIENT OBSERVED AMBULATING ON UNIT UNASSISTED. IN NO ACUTE DISTRESS. 11/24/18 18:13 Vital Signs Temperature 98.0 F 11/24/18 17:54 Pulse Rate 81 11/24/18 17:54 Respiratory Rate 18 11/24/18 17:54 Blood Pressure 143/84 11/24/18 17:54 O2 Sat by Pulse Oximetry (%) Laboratory Tests 11/22/18 10:00 Urine Color Yellow Urine Appearance Clear Urine pH 6.5 Ur Specific [place] 1.002 L Urine Protein Negative Urine Glucose (UA) Negative Urine Ketones Negative Urine Blood Negative Urine Nitrite Negative Urine Bilirubin Negative Urine Urobilinogen 0.2 Ur Leukocyte Esterase Negative UA RESULTS NOTED. 11/24/18 18:15 Assessment: 11/24/18 18:16 WITHDRAWAL SYMPTOMS. Plan: CONTINUE DETOX. INCREASE DAILY PO FLUID INTAKE.
[2018-11-24] MEDS: THIAMINE HCL 100 MG TABLET (FP) PO SCH (22:19)
[2018-11-24] MEDS: OLANZapine 7.5 MG TABLET PO SCH (22:20)
[2018-11-24] MEDS: BACLOFEN 10 MG TABLET (FP) PO PRN (22:21)
[2018-11-24] MEDS: traZODone HCL 50 MG TABLET (FP) PO SCH (22:21)
[2018-11-24] MEDS: MELATONIN 5 MG TABLETS PO PRN (22:22)
[2018-11-25] MEDS: chlordiazePOXIDE HCL 10 MG CAPSULE PO SCH (05:35)
[2018-11-25] MEDS: busPIRone HCL 10 MG TABLET (FP) PO SCH (05:35)
[2018-11-25] MEDS: GABAPENTIN 100 MG CAPSULE (FP) PO SCH (05:35)
[2018-11-25 06:10] VITALS: BP 115/70; PULSE 66; TEMP 97.5
[2018-11-25] MEDS: ESCITALOPRAM OXALATE 10 MG TABLET (FP) PO SCH (09:12)
[2018-11-25] MEDS: LITHIUM CARBONATE 300 MG CAPSULE (FP) PO SCH (09:13)
[2018-11-25] MEDS: BUDESONIDE/FORMETEROL FUMARATE 160/4.5 mcg INHALER IH SCH (09:13)
[2018-11-25] MEDS: RANITIDINE HCL 150 MG TABLET (FP) PO SCH (09:13)
[2018-11-25] MEDS: PRENATAL VITAMINS W/ FOLIC ACID TABLET (FP) PO SCH (09:14)
--- NOTE | 2018-11-25 14:26 | DS ---
[facility] Detox Discharge Summary Admission Date: 11/22/18 Discharge Date: 11/25/18 - History Present History: Alcohol Dependence, Cocaine Dependence, Opioid Dependence Additional Comments: PT DECLINED TO COMPLETE DETOX STATING "I'M MOVING OUT TODAY'. PT IS ALERT O X 3. DENIES S/H/I. REPORTS HE HAS OWN HOME MEDS. Pertinent Past History: PLEASE SEE DX BELOW - Physical Exam Results Vital Signs: Vital Signs Temperature 97.5 F L 11/25/18 06:10 Pulse Rate 66 11/25/18 06:10 Respiratory Rate 18 11/25/18 06:30 Blood Pressure 115/70 11/25/18 06:10 O2 Sat by Pulse Oximetry (%) Pertinent Admission Physical Exam Findings: WITHDRAWAL SX Laboratory Tests 11/22/18 11/24/18 10:00 07:00 Urine Color Yellow Urine Appearance Clear Urine pH 6.5 Ur Specific [place] 1.002 L Urine Protein Negative Urine Glucose (UA) Negative Urine Ketones Negative Urine Blood Negative Urine Nitrite Negative Urine Bilirubin Negative Urine Urobilinogen 0.2 Ur Leukocyte Esterase Negative [place] 0.1 L - Treatment Hospital Course: Discharged Condition Good - Medication Discharge Medications: Ambulatory Orders Buspirone HCl [Buspar -] 5 mg PO TID 11/06/18 Clonazepam 1 mg PO BID 11/06/18 Escitalopram Oxalate [Lexapro -] 15 mg PO DAILY 11/06/18 Gabapentin 400 mg PO TID 11/06/18 [place] Carbonate [Eskalith -] 600 mg PO BID 11/06/18 Naltrexone HCl 50 mg PO DAILY 11/06/18 Olanzapine 15 mg PO HS 11/06/18 Ranitidine [Zantac -] 150 mg PO BID 11/06/18 Trazodone HCl 300 mg PO HS 11/06/18 Diltiazem HCl [Diltiazem 24Hr ER] 360 mg PO DAILY 11/07/18 Albuterol Sulfate Inhaler - [Ventolin Hfa Inhaler -] 1 - 2 inh PO QID PRN Mometasone/Formoterol [Dulera 200 Mcg/5 Mcg Inhaler] 2 inh IH BID 11/22/18 - Diagnosis (1) Asthma Status: Chronic Qualifiers: Asthma severity: mild Asthma persistence: unspecified Asthma complication type: uncomplicated Qualified Code(s): J45.909 - Unspecified asthma, uncomplicated (2) Essential (primary) hypertension Status: Chronic (3) GERD (gastroesophageal reflux disease) Status: Chronic Qualifiers: Esophagitis presence: esophagitis presence not specified Qualified Code(s) : K21.9 - Gastro-esophageal reflux disease without esophagitis (4) Nicotine dependence Status: Acute Qualifiers: Nicotine product type: cigarettes Substance use status: in withdrawal Qualified Code(s): F17.213 - Nicotine dependence, cigarettes, with withdrawal (5) Alcohol dependence with uncomplicated withdrawal Status: Acute (6) Alcohol withdrawal seizure Status: Suspected Qualifiers: Complication of substance-induced condition: with unspecified complication Qualified Code(s): F10.239 - Alcohol dependence with withdrawal, unspecified; R56.9 - Unspecified convulsions (7) Cocaine dependence Status: Acute Qualifiers: Substance use status: uncomplicated Qualified Code(s): F14.20 - Cocaine dependence, uncomplicated (8) Heroin use Status: Acute (9) Fatty liver Status: Chronic (10) Obese Status: Chronic Qualifiers: Obesity type: unspecified obesity type Obesity classification: adult class 3 (BMI >= 40) Serious obesity comorbidity presence: unspecified whether serious comorbidity present Body mass index: BMI 40.0-44.9 Qualified Code(s) : E66.01 - Morbid (severe) obesity due to excess calories; Z68.41 - Body mass index (BMI) 40.0-44.9, adult (11) Psychiatric disorder Status: Chronic - AMA Did Patient Leave Against Medical Advice: Yes (AMA)
[2018-11-25] MEDS ORDERED: chlordiazePOXIDE HCL 10 MG CAPSULE PO SCH (17:00)
== END 2018-11-25 09:22 | disposition left against medical advice (07) | DRG 770 ==
LOC: YASAS 12:17 → Y3N 18:15
PROVIDERS: ADMIT Surgery; ATTEND Surgery
PROC: HZ2ZZZZ Detoxification Services for Substance Abuse Treatment (ICD-10-PCS; principal; 2018-11-22)
DX: F11.23 Opioid dependence with withdrawal (principal); F10.230 Alcohol dependence with withdrawal, uncomplicated; F14.20 Cocaine dependence, uncomplicated; F17.213 Nicotine dependence, cigarettes, with withdrawal; F19.282 Other psychoactive substance dependence with psychoactive substance-induced sleep disorder; F19.24 Other psychoactive substance dependence with psychoactive substance-induced mood disorder; F25.9 Schizoaffective disorder, unspecified; I10 Essential (primary) hypertension; J45.909 Unspecified asthma, uncomplicated; K21.9 Gastro-esophageal reflux disease without esophagitis; K76.0 Fatty (change of) liver, not elsewhere classified; R68.2 Dry mouth, unspecified; E66.01 Morbid (severe) obesity due to excess calories; Z68.41 Body mass index [BMI] 40.0-44.9, adult; G40.509 Epileptic seizures related to external causes, not intractable, without status epilepticus; Z91.5 Personal history of self-harm
CPT/HCPCS: 36415; 80178; 81003; J0475

== ENCOUNTER 2020-10-01 20:31 | Inpatient (IN) | payer OTHER ==
[2020-10-01] MEDS ORDERED: SODIUM CHLORIDE 1,000 ML IV STA (23:05)
[2020-10-01 23:52] LABS: BASO % 0.4 % (0-2.0); EOS % 17.7 % (0-4.5); HEMATOCRIT 32.5 % (35.4-49); HEMOGLOBIN 11.1 GM/dL (11.7-16.9); LYMPH % 43.2 % (8-40); MCH 32.4 pg (25.7-33.7); MCHC 34.2 g/dl (32.0-35.9); MEAN CELL VOLUME 94.8 fl (80-96); MEAN PLT VOLUME 8.6 fl (7.5-11.1); MONO % 7.7 % (3.8-10.2); PLATELET COUNT 158 K/MM3 (134-434); RBC 3.43 M/mm3 (4.00-5.60); RDW 14.9 % (11.9-15.9); WHITE BLOOD COUNT 6.1 K/mm3 (4.0-10.0)
[2020-10-02 00:10] LABS: CHLORIDE 109 mmol/L (98-107); POTASSIUM 3.6 mmol/L (3.5-5.1); SODIUM 147 mmol/L (136-145)
[2020-10-02 00:12] LABS: CALCIUM 8.6 mg/dL (8.5-10.1); GLUCOSE,RANDOM 88 mg/dL (74-106)
[2020-10-02 00:13] LABS: ALBUMIN 3.2 g/dl (3.4-5.0); ANION GAP 6 MMOL/L (8-16); BLOOD UREA NITROGEN 8.2 mg/dL (7-18); CO2 32 mmol/L (21-32); LIPASE 151 U/L (73-393)
[2020-10-02 00:15] LABS: SGPT/ALT 20 U/L (13-61)
[2020-10-02 00:16] LABS: CREATININE 0.6 mg/dL (0.55-1.3); SGOT/AST 37 U/L (15-37)
[2020-10-02 00:17] LABS: BILIRUBIN,TOTAL 0.4 mg/dL (0.2-1); TOT PROT 6.3 g/dl (6.4-8.2)
[2020-10-02 00:18] LABS: ALK PHOS 109 U/L (45-117); LACTIC ACID 2.1 mmol/L (0.4-2.0)
[2020-10-02] MEDS ORDERED: SODIUM CHLORIDE 1,000 ML IV STA (01:04)
[2020-10-02] MEDS ORDERED: FAMOTIDINE 20 MG/50 ML IVPB 20 MG/50 ML MG IVPB ONE ×2 (04:10→04:19)
[2020-10-02] MEDS ORDERED: ACETAMINOPHEN 1000 MG/100 ML VIAL (NON FORMULARY) IVPB ONE (04:10)
[2020-10-02] MEDS ORDERED: ACETAMINOPHEN INJECTION 100 ML IVPB ONE (04:19)
[2020-10-02] MEDS: chlordiazePOXIDE HCL 25 MG CAPSULE PO SCH ×4 (05:55→23:15)
[2020-10-02] MEDS ORDERED: chlordiazePOXIDE HCL 25 MG CAPSULE PO PRN (05:56)
[2020-10-02] MEDS ORDERED: chlordiazePOXIDE HCL 25 MG CAPSULE ONE ×3 (06:37→17:04)
[2020-10-02] MEDS ORDERED: FOLIC ACID INJECTION - 1 MG, THIAMINE HCL 100 MG, MULTIVIT INJECTION ADULT 10 ML in SOD... IVPB ONE (07:00)
[2020-10-02] MEDS ORDERED: DEXTROSE 5%-0.45% SALINE 1,000 ML IV SCH (08:00)
[2020-10-02] MEDS ORDERED: THIAMINE HCL 200 MG/2 ML VIAL ONE (08:09)
[2020-10-02 08:11] LABS: POTASSIUM 3.9 mmol/L (3.5-5.1)
[2020-10-02 08:13] LABS: BLOOD UREA NITROGEN 7.2 mg/dL (7-18); CALCIUM 8.8 mg/dL (8.5-10.1); MAGNESIUM 2.1 mg/dL (1.8-2.4)
[2020-10-02 08:16] LABS: CREATININE 0.6 mg/dL (0.55-1.3); PHOSPHOROUS 3.7 mg/dL (2.5-4.9)
[2020-10-02 08:18] LABS: ALBUMIN 3.7 g/dl (3.4-5.0); BILIRUBIN,TOTAL 0.7 mg/dL (0.2-1); TOT PROT 7.2 g/dl (6.4-8.2)
[2020-10-02 08:33] LABS: URINE COLOR YELLOW
[2020-10-02 08:34] LABS: URINE APPEARANCE CLEAR; URINE BILIRUBIN NEGATIVE (NEGATIVE); URINE GLUCOSE (UA) NEGATIVE (NEGATIVE); URINE KETONE NEGATIVE (NEGATIVE)
[2020-10-02 08:35] LABS: PH,URINE 7.5 (5.0-8.0); URINE LEUK ESTERASE NEGATIVE (NEGATIVE); URINE NITRITE NEGATIVE (NEGATIVE); URINE PROTEIN NEGATIVE (NEGATIVE)
[2020-10-02 08:36] LABS: EPI CELLS 13.3 /uL (0-25.1); URINE BACTERIA 62 /uL (0-1359); URINE RBC 3.8 /uL (0-23.9); URINE WBC 4.7 /uL (0-25.8)
[2020-10-02 08:37] LABS: LACTIC ACID 3.1 mmol/L (0.4-2.0)
[2020-10-02] MEDS ORDERED: PANTOPRAZOLE SODIUM 40 MG/100 ML BAG IVPB ONE (08:46)
[2020-10-02] MEDS ORDERED: ONDANSETRON 4 MG/2 ML VIAL IVPB ONE (08:50)
[2020-10-02] MEDS ORDERED: TRIMETHOBENZAMIDE HCL 200MG/2ML INJ IM ONE (08:52)
[2020-10-02] MEDS ORDERED: ONDANSETRON 4 MG/2 ML VIAL IVPUSH ONE (08:54)
[2020-10-02 09:03] LABS: BASO % 0.4 % (0-2.0); EOS % 16.5 % (0-4.5); HEMATOCRIT 38.3 % (35.4-49); LYMPH % 28.4 % (8-40); MCH 32.5 pg (25.7-33.7); MCHC 34.1 g/dl (32.0-35.9); MEAN CELL VOLUME 95.4 fl (80-96); MEAN PLT VOLUME 9.3 fl (7.5-11.1); MONO % 5.7 % (3.8-10.2); PLATELET COUNT 153 K/MM3 (134-434); RBC 4.01 M/mm3 (4.00-5.60); RDW 15.2 % (11.9-15.9); WHITE BLOOD COUNT 5.3 K/mm3 (4.0-10.0)
[2020-10-02] MEDS: THIAMINE HCL 200 MG/2 ML VIAL IVPB SCH (09:03)
[2020-10-02] MEDS: DEXTROSE 5%-0.45% SALINE 1,000 ML IV SCH ×2 (09:04→19:24)
[2020-10-02] MEDS ORDERED: FOLIC ACID 1 MG TABLET (FP) ONE (09:41)
[2020-10-02] MEDS ORDERED: ENOXAPARIN NA (PORCINE) 40 MG/0.4 ML DISP.SYRIN SQ ONE (09:41)
[2020-10-02] MEDS: ENOXAPARIN NA (PORCINE) 40 MG/0.4 ML DISP.SYRIN SQ SCH (09:55)
[2020-10-02] MEDS: FOLIC ACID 1 MG TABLET (FP) PO SCH (09:55)
[2020-10-02] MEDS ORDERED: THIAMINE HCL 200 MG/2 ML VIAL IVPB SCH (10:00)
[2020-10-02] MEDS ORDERED: PANTOPRAZOLE SODIUM 40 MG VIAL IVPUSH SCH ×2 (10:00→14:14)
[2020-10-02] MEDS ORDERED: MULTIVIT INJ. ADULT COMBO WITH VIT K 1 COMBO 10 ML VIAL IV SCH (10:00)
[2020-10-02 18:16] VITALS: BMI 28.5
[2020-10-03] MEDS: chlordiazePOXIDE HCL 25 MG CAPSULE PO SCH ×3 (05:45→17:12)
[2020-10-03 09:09] LABS: HEMATOCRIT 35.9 % (35.4-49); MCH 32.4 pg (25.7-33.7); MCHC 33.5 g/dl (32.0-35.9); MEAN CELL VOLUME 96.5 fl (80-96); MEAN PLT VOLUME 9.5 fl (7.5-11.1); PLATELET COUNT 120 K/MM3 (134-434); RBC 3.72 M/mm3 (4.00-5.60); RDW 14.4 % (11.9-15.9); WHITE BLOOD COUNT 3.6 K/mm3 (4.0-10.0)
[2020-10-03 09:22] LABS: POTASSIUM 3.2 mmol/L (3.5-5.1)
[2020-10-03 09:31] LABS: ALBUMIN 3.2 g/dl (3.4-5.0); BLOOD UREA NITROGEN 5.2 mg/dL (7-18); CALCIUM 8.5 mg/dL (8.5-10.1)
[2020-10-03 09:32] LABS: MAGNESIUM 1.8 mg/dL (1.8-2.4)
[2020-10-03] MEDS ORDERED: PT OWN MED DRAWER 7, Y5N ONE (09:33)
[2020-10-03 09:34] LABS: CREATININE 0.7 mg/dL (0.55-1.3)
[2020-10-03 09:35] LABS: BILIRUBIN,TOTAL 1.2 mg/dL (0.2-1); PHOSPHOROUS 2.9 mg/dL (2.5-4.9); TOT PROT 6.2 g/dl (6.4-8.2)
[2020-10-03] MEDS: ENOXAPARIN NA (PORCINE) 40 MG/0.4 ML DISP.SYRIN SQ SCH (09:36)
[2020-10-03] MEDS: THIAMINE HCL 200 MG/2 ML VIAL IVPB SCH (09:36)
[2020-10-03] MEDS: FOLIC ACID 1 MG TABLET (FP) PO SCH (09:36)
[2020-10-03] MEDS ORDERED: PANTOPRAZOLE 40 MG TABLET PO SCH (10:00)
[2020-10-03] MEDS: DEXTROSE 5%-0.45% SALINE 1,000 ML IV SCH (10:24)
[2020-10-03 13:45] VITALS: BP 121/85; PULSE 85; TEMP 98.4
[2020-10-03] MEDS ORDERED: POTASSIUM CHLORIDE TABS 20 MEQ TABLET.ER (FP) PO ONE (15:10)
[2020-10-04] MEDS ORDERED: chlordiazePOXIDE HCL 10 MG CAPSULE PO PRN
[2020-10-04] MEDS ORDERED: chlordiazePOXIDE HCL 10 MG CAPSULE PO SCH (05:00)
[2020-10-05] MEDS ORDERED: chlordiazePOXIDE HCL 10 MG CAPSULE PO SCH (05:00)
[2020-10-06] MEDS ORDERED: chlordiazePOXIDE HCL 10 MG CAPSULE PO ONE (05:00)
[2020-10-07 10:07] LABS: BENZODIAZEPINES, UR Negative ng/mL (Cutoff=200); CANNABINOID Positive (Cutoff=20); CANNABINOIDS, URINE See Final Results ng/mL (Cutoff=20); METHADONE, URINE Negative ng/mL (Cutoff=300); OPIATES, UR Negative ng/mL (Cutoff=300); PHENCYCLIDINE, URINE Negative ng/mL (Cutoff=25)
== END 2020-10-03 18:04 | disposition home or self-care (01) | DRG 775 ==
LOC: JER 20:31 → JERBED 10-02 03:00 → J6S 10-02 17:45
PROVIDERS: ADMIT Internal Medicine; ATTEND Internal Medicine
DX: F10.230 Alcohol dependence with withdrawal, uncomplicated (principal); E87.2 Acidosis; D72.10 Eosinophilia, unspecified; F19.10 Other psychoactive substance abuse, uncomplicated; J45.909 Unspecified asthma, uncomplicated; K76.0 Fatty (change of) liver, not elsewhere classified; F32.9 Major depressive disorder, single episode, unspecified; Z91.5 Personal history of self-harm; D64.9 Anemia, unspecified; K29.80 Duodenitis without bleeding; R91.1 Solitary pulmonary nodule
CPT/HCPCS: 36415; 70450-TC; 71260-TC; 74177-TC; 80053; 80307; 81003; 82550; 82553; 82607; 82728; 82746; 82962; 83540; 83550; 83605; 83690; 83735; 84100; 84484; 85025; 85027; 86682; 87804; 93005; 93010; 99285-25; C9803; J0131; Q9967; U0003; U0005